=== PATIENT | female | born 1975 | race American Indian/Alaskan Native ===

== ENCOUNTER 2019-03-01 18:38 | Emergency (ER) | payer OTHER ==
[2019-03-01 19:06] VITALS: BP 130/81
--- NOTE | 2019-03-01 19:07 | Event Note ---
ED Screening Note ED Screening Note: pelvic cramping +urinary frequency +pressure no dysuria states that she saw vaginal spotting once no vaginal discharge states she is 8 weeks OB appt is on march 17 [facility] january 08 /P:1/A:0 This initial assessment/diagnostic orders/clinical plan/treatment(s) is/are subject to change based on patients health status, clinical progression and re- assessment by fellow clinical providers in the ED. Further treatment and workup at subsequent clinical providers discretion. Patient/guardian urged not to elope from the ED as their condition may be serious if not clinically assessed and managed. Initial orders include: UA, hcg quant, US OB
[2019-03-01 19:48] LABS: Bacteria,Urine 1+ /HPF (Negative); Bilirubin,Urine NEG (Negative); Blood,Urine LG (Negative); Color,Urine Yellow (Yellow); Protein,Urine <15 mg/dL mg/dL (Negative); Urobilinogen,Urine < 2.0 mg/dL (<2.0)
[2019-03-01 19:50] LABS: WBC,Urine > 182.0 /HPF (0.0-6.0)
[2019-03-01] MEDS ORDERED: ROCEPHIN/NS 1 GM/50 ML 1 GM/50 ML BAG IV ONE (20:07)
[2019-03-01] MEDS ORDERED: NACL 0.9% 1000 ML 1,000 ML IV ONE (20:07)
[2019-03-01 20:37] LABS: Basophils % (Auto) 0.5 % (0.0-1.8); Eosinophils # (Auto) 0.1 K/mm3 (0.0-0.4); Eosinophils % (Auto) 0.8 % (0.0-4.3); Hematocrit 40.5 % (30.3-42.9); Hemoglobin 13.5 gm/dl (10.1-14.3); Lymphocytes # (Auto) 2.5 K/mm3 (1.2-5.4); Lymphocytes % (Auto) 28.5 % (13.4-35.0); Mean Corpuscular HGB Conc 33 % (30-34); Mean Corpuscular Volume 94 fl (79-97); Monocytes # (Auto) 0.6 K/mm3 (0.0-0.8); Monocytes % (Auto) 7.4 % (0.0-7.3); Platelet Count 302 K/mm3 (140-440); Red Cell Distribution Width 14.3 % (13.2-15.2)
[2019-03-01] MEDS ORDERED: TYLENOL PO ONE (21:11)
--- NOTE | 2019-03-01 21:24 | Ultrasound Report ---
US OB <= 14 weeks fetus INDICATION / CLINICAL INFORMATION: pelvic pain, 8 weeks. COMPARISON: None available. FINDINGS: Intrauterine gestational sac contains a single pole. [place]-rump length measures 23.7 mm, corres ponding to a gestational age of 9 weeks 1 day heart rate 171. 3.8 cm hypoechoic area in the myometrium probably represent uterine fibroid. Smaller (8mm) hypoechoic lesion, also in the myometrium, probably represents a smaller fibroid. Left ovary contains a 1.5 cm cyst, probably corpus luteal cyst. Right ovary could not be identified. IMPRESSION: 1. Viable 9 week 1 day intrauterine . Probable uterine fibroid. Signer Name: Vadim Sung MD Signed: 03/01/2019 9:20 PM Workstation Name: [id number]
--- NOTE | 2019-03-01 21:25 | Ultrasound Report ---
OB ultrasound transvaginal imaging See previous report. Signer Name: Vadim Sung MD Signed: 03/01/2019 9:21 PM Workstation Name: [id number]
[2019-03-01 21:29] LABS: Alanine Aminotransferase 22 units/L (7-56); BUN/Creatinine Ratio 16; Blood Urea Nitrogen 11 mg/dL (7-17); Calcium 9.4 mg/dL (8.4-10.2); Hemolysis Index 6
[2019-03-01 21:55] LABS: Albumin 4.3 g/dL (3.9-5)
--- NOTE | 2019-03-01 22:57 | Emergency Department Report ---
ED Female HPI - General Chief complaint: Abdominal Pain Stated complaint: PELVIC PAIN (8WKS PREG) Time Seen by Provider: 03/01/19 19:04 Source: patient Mode of arrival: Ambulatory Limitations: No Limitations - History of Present Illness Initial comments: Patient is a A0 with a 3-year-old -Indian female who is approximately 9 weeks gestation presents to the ED with complaint of acute onset persistent suprapubic pressure, dysuria, urinary frequency and urgency and hematuria with vaginal bleeding for the last 8 hours. The patient states that she initially had spotting when the urine but subsequently the spotting became darker in color and that the dysuria is somewhat worse. Patient denies nausea, vomiting, fever, chills, vaginal discharge, low back pain, heavy lifting, traumatic injury, dizziness or diarrhea. MD Complaint: vaginal bleeding, pelvic pain (suprapubic) -: Sudden, hour(s) (8) Location: suprapubic Radiation: non-radiating Severity: moderate Severity scale (0 -10): 5 Quality: cramping, burning Consistency: constant Improves with: none Worsens with: urination Are you Now?: Yes (9 weeks gestation) Associated Symptoms: denies other symptoms, vaginal bleeding, abdominal pain, dysuria. denies: vaginal discharge, nausea/vomiting, fever/chills, headaches, loss of appetite, hematuria, rash, shortness of breath, syncope, weakness - Related Data Sexually active: Yes : 2 Para: 1 A: 0 Previous Rx's Medication Instructions Recorded Last Taken Type Ondansetron [Zofran Odt] 4 mg PO Q6H PRN #10 tab.rapdis 06/22/18 Unknown Rx traMADol [Ultram] 50 mg PO Q6HR PRN #10 tablet 06/22/18 Unknown Rx cephALEXin [Keflex] 500 mg PO Q6HR #40 capsule 03/01/19 Unknown Rx Allergies Allergy/AdvReac Type Severity Reaction Status Date / Time No Known Allergies Allergy Verified 06/22/18 14:57 ED Review of Systems ROS: Stated complaint: PELVIC PAIN (8WKS PREG) Other details as noted in HPI Constitutional: denies: chills, fever Eyes: denies: eye pain, eye discharge, vision change ENT: denies: ear pain, throat pain Respiratory: denies: cough, shortness of breath, wheezing Cardiovascular: denies: chest pain, palpitations Endocrine: no symptoms reported Gastrointestinal: abdominal pain. denies: nausea, diarrhea, constipation Genitourinary: urgency, dysuria, hematuria, other (vaginal bleeding). denies: discharge Musculoskeletal: denies: back pain, joint swelling, arthralgia Skin: denies: rash, lesions Neurological: denies: headache, weakness, paresthesias Psychiatric: denies: anxiety, depression Hematological/Lymphatic: denies: easy bleeding, easy bruising ED Past Medical Hx - Past Medical History Previous Medical History?: No - Surgical History Past Surgical History?: No - Social History Smoking Status: Never Smoker Substance Use Type: None - Medications Home Medications: Home Medications Medication Instructions Recorded Confirmed Last Taken Type Ondansetron [Zofran Odt] 4 mg PO Q6H PRN #10 tab.rapdis 06/22/18 Unknown Rx traMADol [Ultram] 50 mg PO Q6HR PRN #10 tablet 06/22/18 Unknown Rx cephALEXin [Keflex] 500 mg PO Q6HR #40 capsule 03/01/19 Unknown Rx ED Physical Exam - General Limitations: No Limitations General appearance: alert, in no apparent distress - Head Head exam: Present: atraumatic, normocephalic, normal inspection - Eye Eye exam: Present: normal appearance, PERRL, EOMI Pupils: Present: normal accommodation - ENT ENT exam: Present: normal exam, normal orophraynx, mucous membranes moist, TM's normal bilaterally, normal external ear exam - Neck Neck exam: Present: normal inspection, full ROM - Respiratory Respiratory exam: Present: normal lung sounds bilaterally. Absent: respiratory distress, wheezes, rhonchi, chest wall tenderness, accessory muscle use - Cardiovascular Cardiovascular Exam: Present: regular rate, normal rhythm, normal heart sounds. Absent: systolic murmur, diastolic murmur, rubs, gallop - GI/Abdominal GI/Abdominal exam: Present: soft, normal bowel sounds. Absent: distended, tenderness, guarding, hyperactive bowel sounds, hypoactive bowel sounds, organomegaly - Rectal Rectal exam: Present: deferred - Bi-manual exam: Present: other (Pelvic exam deferred, patient opted not to have it performed) - Extremities Exam Extremities exam: Present: normal inspection, full ROM, normal capillary refill - Back Exam Back exam: Present: normal inspection, full ROM. Absent: CVA tenderness (L), muscle spasm, paraspinal tenderness, vertebral tenderness - Neurological Exam Neurological exam: Present: alert, oriented X3, CN II-XII intact, normal gait, reflexes normal - Psychiatric Psychiatric exam: Present: normal affect, normal mood - Skin Skin exam: Present: warm, dry, intact, normal color. Absent: rash ED Course Vital Signs 03/01/19 03/01/19 19:04 20:00 Temperature 98.1 F Pulse Rate 97 H Respiratory 18 18 Rate Blood Pressure 130/81 O2 Sat by Pulse 99 Oximetry - Reevaluation(s) Reevaluation #1: 03/01/19 22:58 Patient is alert and oriented 3 and is not in distress. Lab test results show hCG Quant of 62,952, and urinalysis shows significant urinary tract infection a nd significant hematuria. Transvaginal ultrasound shows a single IUP sac containing a single pole corresponding to gestational age of 9 weeks and 1 day with heart rate of 171 bpm. There is also a 3.8 cm hypoechoic area in the myometrium suspected to be uterine fibroid. Left ovary contains 1.5 cm ceased which is probably corpus luteal cyst but to the right ovary was not identified. The patient received normal saline 1 L IV bolus in the ED, also Rocephin 1 g IV 1. Patient was discharged home and advised to maintain complete pelvic rest and to follow-up with the [facility] physician in 7-10 days for reevaluation. Patient was advised to return to the ED immediately if the symptoms get worse. Patient was otherwise discharged home on antibiotics for acute urinary tract infection. ED Medical Decision Making - Lab Data Result diagrams: 03/01/19 20:25 03/01/19 20:25 - Radiology Data Radiology results: report reviewed, image reviewed Transvaginal ultrasound shows a single IUP sac containing a single pole corresponding to gestational age of 9 weeks and 1 day with heart rate of 171 bpm. There is also a 3.8 cm hypoechoic area in the myometrium suspected to be uterine fibroid. Left ovary contains 1.5 cm ceased which is probably corpus luteal cyst but to the right ovary was not identified. - Medical Decision Making Patient is alert and oriented 3 and is not in distress. Lab test results show hCG Quant of 62,952, and urinalysis shows significant urinary tract infection and significant hematuria. Transvaginal ultrasound shows a single IUP sac containing a single pole corresponding to gestational age of 9 weeks and 1 day with heart rate of 171 bpm. There is also a 3.8 cm hypoechoic area in the myometrium suspected to be uterine fibroid. Left ovary contains 1.5 cm ceased which is probably corpus luteal cyst but to the right ovary was not identified. The patient received normal saline 1 L IV bolus in the ED, also Rocephin 1 g IV 1. Patient was discharged home and advised to maintain complete pelvic rest and to follow-up with the [facility] physician in 7-10 days for reevaluation. Patient was advised to return to the ED immediately if the symptoms get worse. Patient was otherwise discharged home on antibiotics for acute urinary tract infection - Differential Diagnosis Threatened miscarriage; Acute UTI; Abdominal pain in Critical care attestation.: If time is entered above; I have spent that time in minutes in the direct care of this critically ill patient, excluding procedure time. ED Disposition Clinical Impression: Abdominal pain during in first trimester, Threatened miscarriage in early , Acute urinary tract infection Disposition: DC-01 TO HOME OR SELFCARE Is pt being admited?: No Does the pt Need Aspirin: No Condition: Stable Instructions: Abdominal Pain (ED), Threatened Miscarriage (ED), Urinary Tract Infection in Women (ED) Additional Instructions: Maintain a complete pelvic rest until followed up by the [facility] physician in 7- 10 days. Take medications with food and drink plenty of fluids as advised. Return to the ED immediately if symptoms get worse. Prescriptions: cephALEXin [Keflex] 500 mg PO Q6HR #40 capsule Referrals: STEPHANIA JJ MD [Staff Physician] - 3-5 Days Time of Disposition: 23:03 Print Language: ICELANDIC
== END 2019-03-01 23:15 | disposition home or self-care (01) ==
LOC: ED 18:38
DX: O20.0 Threatened abortion (principal); O23.41 Unspecified infection of urinary tract in pregnancy, first trimester; Z3A.09 9 weeks gestation of pregnancy; Z79.899 Other long term (current) drug therapy
CPT/HCPCS: 36415; 76801; 76817; 80053; 81001; 83690; 84702; 85025; 86900; 86901; 96365; 99284; J0696; J7030